=== PATIENT | female | born 1985 | race African-American/Black ===

== ENCOUNTER 2020-01-11 20:41 | Emergency (ER) | payer SELFPAY ==
--- NOTE | 2020-01-11 21:06 | NUR ---
Patient left without being triaged or seen by an MD. Patient states, "I will just go to a designated facility for evaluation." Patient is A/Ox4, and is able to ambulate with steady gait.
== END 2020-01-11 21:09 | disposition left against medical advice (07) ==
LOC: ER 20:43
DX: Z75.3 Unavailability and inaccessibility of health-care facilities (principal)

== ENCOUNTER 2020-01-11 22:28 | Emergency (ER) | payer MEDICAID ==
[~2020-01-11] VITALS: Ht 167.6 cm; Wt 63.5 kg
--- NOTE | 2020-01-11 22:47 | NUR ---
Dr Bustos at the bedside for MSE.
[2020-01-11] MEDS ORDERED: AZITHROMYCIN 250 MG TABLET PO ONE (23:00)
[2020-01-11] MEDS ORDERED: CEFTRIAXONE 500 MG VIAL IM ONE (23:00)
[2020-01-11] MEDS ORDERED: METRONIDAZOLE 500 MG TABLET PO ONE (23:00)
[2020-01-11] MEDS ORDERED: LIDOCAINE HCL 1% 20 ML VIAL IJ ONE (23:15)
[2020-01-11] MEDS ORDERED: LIDOCAINE HCL 1% 20 ML VIAL ONE (23:21)
[2020-01-11] MEDS ORDERED: AZITHROMYCIN 250 MG TABLET ONE (23:21)
[2020-01-11] MEDS ORDERED: METRONIDAZOLE 500 MG TABLET ONE (23:22)
[2020-01-11] MEDS ORDERED: CEFTRIAXONE 500 MG VIAL ONE (23:22)
[2020-01-11 23:43] LABS: *AMPHETAMINE, URINE NEGATIVE (NEGATIVE); *CANNABINOID, URINE POSITIVE (NEGATIVE); *COCCAINE, URINE NEGATIVE (NEGATIVE); *OPIATE, URINE NEGATIVE (NEGATIVE); *PHENCYCLIDINE SCREEN,URINE NEGATIVE (NEGATIVE)
--- NOTE | 2020-01-12 00:04 | NUR ---
Called [employer] non emergency line. 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 [facility] Plate Layer will dispatch unit with Incident #[id number]
--- NOTE | 2020-01-12 00:13 | NUR ---
Patient discharged to home in stable condition. Written and verbal after care instructions given. Patient verbalizes understanding of instructions. Stressed follow up or return to ER for worsening s/s.
[2020-01-12 00:14] VITALS: BP 112/75
--- NOTE | 2020-01-12 02:52 | NUR ---
left a voicemail for the patient. The patient was inadvertantly not offered the morning after pill to avoid and I would like to call it in for her.
[2020-01-16 04:06] LABS: *GC NAA Negative (Negative); *TRIC.VAG. NAA Negative (Negative)
== END 2020-01-12 00:14 | disposition home or self-care (01) ==
LOC: ER 22:29
DX: T76.21XA Adult sexual abuse, suspected, initial encounter (principal); Z20.2 Contact with and (suspected) exposure to infections with a predominantly sexual mode of transmission
CPT/HCPCS: 80307; 87491; 96372; 99283; J0696; J3490; A4663; Q0144